=== PATIENT | male | born 1945 | race Caucasian/White ===

== ENCOUNTER 2016-03-15 09:40 | Observation (INO) | payer OTHER ==
[2016-03-15] MEDS ORDERED: diphenhydrAMINE 25 MG CAP PO ONE ×2 (09:54→10:12)
[2016-03-15] MEDS ORDERED: FAMOTIDINE 20 MG TAB PO ONE (09:54)
[2016-03-15] MEDS ORDERED: NS 1,000 ML IV ONE (09:54)
[2016-03-15] MEDS ORDERED: ASPIRIN EC 325 MG TAB PO ONE ×3 (09:54→12:59)
[2016-03-15] MEDS ORDERED: DIAZEPAM 5 MG TAB PO ONE (09:54)
--- NOTE | 2016-03-15 10:09 | CPEKG ---
Heart Rate: 65 RR Interval: 923 P-R Interval: 248 QRSD Interval: 148 QT Interval: 428 QTC Interval: 445 P [place]: 31 QRS [place]: -28 T Wave [place]: -2 EKG Severity - ABNORMAL ECG - EKG Impression: SINUS RHYTHM EKG Impression: ATRIAL PREMATURE COMPLEX EKG Impression: FIRST DEGREE AV BLOCK EKG Impression: RIGHT BUNDLE BRANCH BLOCK EKG Impression: PROBABLE INFERIOR INFARCT, AGE INDETERMINATE Electronically Signed By: Marcos Jo 15-Mar-2016 13:20:04
[2016-03-15] MEDS ORDERED: FAMOTIDINE 20 MG TAB ONE (10:12)
[2016-03-15] MEDS ORDERED: DIAZEPAM 5 MG TAB ONE (10:12)
[2016-03-15 10:31] LABS: % IMMATURE GRANULYOCYTES 0.3 % (0.0-1.1); ABSOLUTE IMMATURE GRANULOCYTES 0.02 10^3/uL (0.00-0.10); ADD DIFF? NO; ADD MORPH? NO; ADD SCAN? NO; ATYPICAL LYMPHOCYTE FLAG 10 (0-99); FRAGMENT RBC FLAG 0 (0-99); HEMATOCRIT 39.7 % (40.0-51.0); HEMOGLOBIN 13.8 g/dL (13.7-17.5); LEFT SHIFT FLG 0 (0-99); LIPEMIA HEMOLYSIS FLAG 90 (0-99); MEAN CELL HEMOGLOBIN CONCENTR. 34.8 g/dL (32.4-36.7); MEAN CELL VOLUME 92.1 fL (81.5-99.8); MEAN PLATELET VOLUME 11.8 fL (8.7-11.7); PLATELET CLUMPS FLAG 0 (0-99); PLATELET COUNT 221 10^3/uL (150-400); RED BLOOD CELL COUNT 4.31 10^6/uL (4.40-6.38); RED CELL DISTRIBUTION WIDTH 13.6 % (11.5-15.2)
[2016-03-15] MEDS ORDERED: LIDOCAINE 1% 30 ML SDV ONE (10:31)
[2016-03-15] MEDS ORDERED: fentaNYL 100 MCG/2 ML INJ ONE ×2 (10:31→11:44)
[2016-03-15] MEDS ORDERED: MIDAZOLAM 2 MG/2 ML VIAL ONE ×3 (10:32→11:44)
[2016-03-15] MEDS ORDERED: HEPARIN 10,000 UNIT/10 ML MDV ONE ×2 (10:33→11:28)
[2016-03-15] MEDS ORDERED: VERAPAMIL 5 MG/2 ML VIAL ONE (10:33)
[2016-03-15] MEDS ORDERED: IOPAMIDOL (ISOVUE 370) 100 ML BTL IV ONE ×4 (10:34→12:26)
[2016-03-15 10:41] LABS: INR 1.09 (0.83-1.16)
[2016-03-15 10:55] LABS: ANION GAP 14 mEq/L (8-16); CALCIUM 9.6 mg/dL (8.5-10.4); CARBON DIOXIDE 21 mEq/l (22-31); CHLORIDE 107 mEq/L (97-110); CHOLESTEROL 180 mg/dL (140-220); CHOLESTEROL/HDL RATIO 5.29 RATIO (1.00-4.97); CREATININE 1.1 mg/dL (0.7-1.3); GLOMERULAR FILTRATION RATE > 60; GLUCOSE 134 mg/dL (70-100); HIGH DENSITY LIPOPROTEIN 34 mg/dL (40-65); LDL/HDL RATIO 3.21 RATIO (1.00-3.64); LOW DENSITY LIPOPROTEIN 109 mg/dL (80-100); MAGNESIUM 1.9 mg/dL (1.6-2.3); NON-HIGH DENSITY LIPOPROTEIN 146 mg/dL (90-129); POTASSIUM 4.4 mEq/L (3.5-5.2); SODIUM 142 mEq/L (134-144); TRIGLYCERIDE 185 mg/dL (40-150); VERY LOW DENSITY LIPOPROTEINS 37 mg/dL (8-25)
[2016-03-15] MEDS ORDERED: TICAGRELOR 90 MG TAB PO ONE ×2 (11:39→12:59)
[2016-03-15] MEDS ORDERED: NITROGLYCERIN 1,500 MCG/15 ML VIAL MISC ONE (11:39)
[2016-03-15] MEDS ORDERED: TEMAZEPAM 15 MG CAP PO PRN (12:59)
[2016-03-15] MEDS ORDERED: OXYCODONE/APAP 5/325 TAB PO PRN (12:59)
[2016-03-15] MEDS ORDERED: NITROGLYCERIN 0.4 MG BTL SL PRN (12:59)
[2016-03-15] MEDS ORDERED: ATROPINE SULFATE 1 MG/10 ML SYR IVP PRN (12:59)
[2016-03-15] MEDS ORDERED: ONDANSETRON 4 MG/2 ML VIAL IVP PRN (12:59)
[2016-03-15] MEDS ORDERED: LORazepam 2 MG/ML INJ IVP PRN (12:59)
[2016-03-15] MEDS ORDERED: HYDROCODONE/APAP 5/325 TAB PO PRN (12:59)
[2016-03-15] MEDS ORDERED: NS 1,000 ML IV SCH (13:00)
--- NOTE | 2016-03-15 13:06 | PDDXCAT ---
Diagnostic Cath Note - . Date: 03/15/16 Division Controller: Lee Indication: Class I/II angina, intolerance to med therapy or failure to respond , High-risk criteria on noninvasive testing (choose option below) High-risk criteria on non-invasive testing: high-risk treadmill score (score<=- 11) - Procedure Access: right groin Procedure: left heart catheterization, coronary angiography, left ventriculogram , vein graft injection, PEREZ injection - Materials Left Heart Cath size: 6F Left Heart Cath materials: JL4.0, JR4.0, pigtail, other ( intravascular ultrasound with PCI of the saphenous vein graft to the right coronary and PCI of the left main coronary artery) - Findings-Left Heart Catheterization LM: 95% unobstructed with a large calcific atheroma LAD: 100% occluded after septal multilith operator LCX: 100% occluded RCA: 100% occluded proximally rSVG: patent to the principal diagonal, patent to the obtuse marginal branch, 99 % stenosis of the vein graft to the posterior lateral and posterior descending coronary artery PEREZ: patent to the LAD EDP: 15 mm of mercury with significant respiratory variation LVEF: 60% Wall motion: normal Complications: none Estimated blood loss: <50ml Closure method: Angioseal Assessment: 1. Severe [place] three-vessel coronary artery disease with complete occlusion of the [place] circ, lad, proximal right coronary artery. 2. Patent mammary artery to the LAD. 3. Patent vein graft to the diagonal and obtuse marginal branch. 4. crescendo angina with subtotal stenosis of the vein graft to the posterior lateral and posterior descending coronary artery. 5. Significant left main disease supplying proximal diagonal and septal perforators. 6. Normal left ventricular systolic function Plan: PCI and stenting of the vein graft to the right coronary artery. PCI and stenting of the proximal left main. Intervention: After reviewing diagnostic angiograms it was elected to proceed with PCI of the vein graft to the right coronary artery. Patient was administered IV heparin. He was loaded with Brilinta. Using a 6 Pryde[place] JR4 guiding catheter the right coronary artery graft was selectively intubated. Attempts at crossing with a large filter wire were made but the basket would not cross the stenosis. Even with a yared wire we were unable to advance the filter wire. Pre dilatation was performed using a 0.014 grand slam wire and a 1.5 mm balloon. Attempts at crossing with a 4.0 x 15 mm synergy stent were made but failed. A 2nd pre dilatation was performed using a 2 mm balloon. The stent easily crossed was placed across the stenosis and deployed using a single inflation. Intravascular ultrasound was slow pullback showed the stent to be completely opposed. The wire was withdrawn and our attention was then turned to the left main coronary artery. Therapeutic ACT was confirmed. Additional heparin was given. Attempts at engaging the left main coronary artery using a JL4 guiding catheter were made but failed. A 6 Prydeinig EBU 3.75 guide was then used to intubate the left main coronary. A wire was advanced into the distal LAD and down the septal multilith operator. Intravascular ultrasound confirmed a large atheroma of the proximal left main with subtotal stenosis. Pre dilatation was performed using a 4 mm balloon. A 4.0 x 16 mm synergy stent was positioned in orthogonal views and deployed using a single inflation. Repeat intravascular ultrasound showed a distal limited dissection with disruption of the intima. A 2nd 4.0 x 8 mm synergy was stent was placed distally. Final angiogram revealed IRA grade 3 flow. Therapeutic ACT was confirmed at 2:54 a.m.. Left ventricular angiography was performed. Sheath was removed in the patient's taken to [facility] for continued care. Result discussed with the patient's . Final diagnosis: Crescendo angina with abnormal stress test status post PCI and stenting of the saphenous vein graft to the posterior descending and posterolateral branch and stenting of the [place] left main. Patient be continued on dual antiplatelet therapy for 1 year. Continued aggressive secondary prevention. Considerations for PCSK9 9 inhibitor with progression despite full dose Lipitor and gemfibrozil. Patient Problems: Problems Problem Status Diagnosed Coronary artery disease Acute Coronary artery disease involving autologous artery coronary bypass graft Acute Coronary artery disease involving left main coronary artery Acute
--- NOTE | 2016-03-15 13:12 | CPEKG ---
Heart Rate: 66 RR Interval: 909 P-R Interval: 228 QRSD Interval: 144 QT Interval: 444 QTC Interval: 466 P [place]: 33 QRS [place]: -40 T Wave [place]: 0 EKG Severity - ABNORMAL ECG - EKG Impression: SINUS RHYTHM EKG Impression: ATRIAL PREMATURE COMPLEX EKG Impression: FIRST DEGREE AV BLOCK EKG Impression: RIGHT BUNDLE BRANCH BLOCK EKG Impression: PROBABLE INFERIOR INFARCT, AGE INDETERMINATE Electronically Signed By: Marcos Jo 15-Mar-2016 13:19:45
[2016-03-15] MEDS: GEMFIBROZIL 600 MG TAB PO SCH (20:31)
[2016-03-15] MEDS: FAMOTIDINE 20 MG TAB PO SCH (20:31)
[2016-03-16 04:48] LABS: % IMMATURE GRANULYOCYTES 0.2 % (0.0-1.1); ABSOLUTE IMMATURE GRANULOCYTES 0.02 10^3/uL (0.00-0.10); ADD DIFF? NO; ADD MORPH? NO; ADD SCAN? NO; ATYPICAL LYMPHOCYTE FLAG 10 (0-99); FRAGMENT RBC FLAG 0 (0-99); HEMATOCRIT 36.3 % (40.0-51.0); HEMOGLOBIN 12.4 g/dL (13.7-17.5); LEFT SHIFT FLG 0 (0-99); LIPEMIA HEMOLYSIS FLAG 90 (0-99); MEAN CELL HEMOGLOBIN 31.9 pg (27.9-34.1); MEAN CELL HEMOGLOBIN CONCENTR. 34.2 g/dL (32.4-36.7); MEAN CELL VOLUME 93.3 fL (81.5-99.8); MEAN PLATELET VOLUME 12.1 fL (8.7-11.7); PLATELET CLUMPS FLAG 10 (0-99); PLATELET COUNT 201 10^3/uL (150-400); RED BLOOD CELL COUNT 3.89 10^6/uL (4.40-6.38); RED CELL DISTRIBUTION WIDTH 13.5 % (11.5-15.2)
[2016-03-16 05:03] LABS: ALBUMIN 3.8 g/dL (3.5-5.0); ANION GAP 13 mEq/L (8-16); ASPARTATE AMINOTRANSFERASE 45 IU/L (17-59); BILIRUBIN,TOTAL 0.5 mg/dL (0.1-1.4); CARBON DIOXIDE 22 mEq/l (22-31); CHLORIDE 107 mEq/L (97-110); GLOMERULAR FILTRATION RATE > 60; GLUCOSE 98 mg/dL (70-100); LACTATE DEHYDROGENASE 354 IU/L (313-618); MAGNESIUM 1.9 mg/dL (1.6-2.3); POTASSIUM 4.2 mEq/L (3.5-5.2); SODIUM 142 mEq/L (134-144)
[2016-03-16 07:33] VITALS: TEMP 98.1
[2016-03-16] MEDS: GEMFIBROZIL 600 MG TAB PO SCH (08:28)
[2016-03-16] MEDS: FAMOTIDINE 20 MG TAB PO SCH (08:28)
[2016-03-16] MEDS ORDERED: LOSARTAN POTASSIUM 25 MG TAB PO SCH (09:00)
[2016-03-16] MEDS ORDERED: ASPIRIN EC 81 MG TAB PO SCH (09:00)
[2016-03-16] MEDS ORDERED: TICAGRELOR 90 MG TAB PO SCH (09:00)
[2016-03-16] MEDS ORDERED: OMEGA-3 FATTY ACIDS 1,000 MG CAP PO SCH (09:00)
[2016-03-16] MEDS ORDERED: ATORVASTATIN CALCIUM 40 MG TAB PO SCH (09:00)
--- NOTE | 2016-03-16 09:14 | CPEKG ---
Heart Rate: 75 RR Interval: 800 P-R Interval: 192 QRSD Interval: 152 QT Interval: 432 QTC Interval: 483 P [place]: 24 QRS [place]: -54 T Wave [place]: 6 EKG Severity - ABNORMAL ECG - EKG Impression: SINUS ARRHYTHMIA, RATE 67-82 EKG Impression: MULTIPLE VENTRICULAR PREMATURE COMPLEXES EKG Impression: RIGHT BUNDLE BRANCH BLOCK EKG Impression: INFERIOR INFARCT, AGE INDETERMINATE Electronically Signed By: Marcos Jo 16-Mar-2016 10:21:16
[2016-03-16 12:32] VITALS: BP 147/87; PULSE 86; RESP 16; O2SAT 94
[2016-03-16] MEDS ORDERED: GLIMEPIRIDE 2 MG TAB PO PRN (18:00)
--- NOTE | 2016-03-16 20:38 | GDS ---
[f rep st] DISCHARGE SUMMARY REASON FOR ADMISSION: Coronary artery disease. HOSPITAL COURSE: Please refer to Dr. Howard's recent office note which serves as the admission history and physical for this hospital encounter. Also , refer to his cardiac catheterization report. Briefly, the patient is a 70- year-old male with a history of CAD and a prior 4-vessel CABG performed in 2005. He recently developed worsening dyspnea on exertion and chest pressure with physical activities such as skiing. On that basis, he was scheduled for cardiac catheterization. That procedure was carried out yesterday and demonstrated preserved left ventricular function. All 3 of his [place] coronary arteries were totally occluded. A left internal mammary bypass to the left anterior descending was patent. Separate saphenous vein grafts to the principal diagonal branch and principal obtuse marginal branch were also patent. His saphenous vein graft to the distal RCA had a focal, greater than 90 % lesion in the midportion of the graft. Additionally, the patient had a high- grade stenosis of the left main which supplies the proximal portions and a few small branches of the left anterior descending and circumflex. Based on the patient's clinical history and diagnostic angiograms, Dr. Howard proceeded with percutaneous intervention of the saphenous vein graft to the distal RCA, placing a 4.0 x 16 mm Synergy stent. The left main also underwent PCI with placement of two Synergy stents measuring 4.0 x 16 mm and 4.0 x 8 mm. Angiographic outcome at both sites was excellent. Overnight, the patient has had no cardiac symptoms and has not had any issues with his femoral catheterization site. RECOMMENDATIONS AND DISPOSITION: The patient is discharged in stable condition. Please refer to the medication reconciliation section of the electronic record. He should not resume his metformin for another 48 hours. For now, his dual anti-platelet therapy will consist of Brilinta and aspirin. He should reduce his home aspirin dose from 325 mg daily to 81 mg daily while he is on Brilinta. He was provided with a card for a free 30-day supply. Genetic testing to determine his clopidogrel metabolism has been requested. His LDL cholesterol was measured at 109. He will discuss potentially starting a PCSK9 inhibitor with Dr. Howard in the office. The office staff at [facility] has been instructed to contact the patient to arrange a followup appointment in the near future. He should resume his usual heart healthy dietary and exercise habits. DISCHARGE DIAGNOSES: 1. Coronary artery disease. 2. History of bypass surgery. 3. Status post percutaneous coronary intervention of the saphenous vein graft to the right coronary artery with placement of a single drug-coated stent. 4. Status post percutaneous coronary intervention of the left main with placement of two drug-coated stents. /[id number]/MODL MTDD
[2016-03-17] MEDS ORDERED: GLIMEPIRIDE 2 MG TAB PO SCH (09:00)
[2016-03-19 15:39] LABS: 2C19S INTERPRETATION See Comments (())
== END 2016-03-16 14:53 | disposition home or self-care (01) ==
LOC: FCATH 09:40 → F2W 12:54
PROVIDERS: ADMIT Internal Medicine Interventional Cardiology; ATTEND Internal Medicine Interventional Cardiology
PROC: 027136Z Dilation of Coronary Artery, Two Arteries with Three Drug-eluting Intraluminal Devices, Percutaneous Approach (ICD-10-PCS; principal; 2016-03-15)
PROC: B2151ZZ Fluoroscopy of Left Heart using Low Osmolar Contrast (ICD-10-PCS; principal; 2016-03-15)
PROC: B2111ZZ Fluoroscopy of Multiple Coronary Arteries using Low Osmolar Contrast (ICD-10-PCS; principal; 2016-03-15)
PROC: 4A023N7 Measurement of Cardiac Sampling and Pressure, Left Heart, Percutaneous Approach (ICD-10-PCS; principal; 2016-03-15)
DX: I25.110 Atherosclerotic heart disease of native coronary artery with unstable angina pectoris (principal); I25.710 Atherosclerosis of autologous vein coronary artery bypass graft(s) with unstable angina pectoris; Z95.1 Presence of aortocoronary bypass graft
CPT/HCPCS: 92978; 92979; 93005; 93459; C1725; C1753; C1760; C1769; C1874; C1884; C1887; C9600; C9604; G0378; J1644; J2250; J3010; Q9967; 81225-90

== ENCOUNTER → 2017-04-13 | Outpatient (CLI) | payer OTHER | LOC: FIMAGING 10:12 | PROVIDERS: ATTEND Family Medicine | DX: M51.26 Other intervertebral disc displacement, lumbar region (principal) ==

== ENCOUNTER → 2017-04-18 | Outpatient (CLI) | payer OTHER | LOC: FIMAGING 14:15 | PROVIDERS: ATTEND Physical Medicine & Rehabilitation Neuromuscular Medicine | DX: M43.16 Spondylolisthesis, lumbar region (principal); M51.36 Other intervertebral disc degeneration, lumbar region ==

== ENCOUNTER → 2017-05-08 | Outpatient (CLI) | payer OTHER | LOC: FIMAGING 11:36 | PROVIDERS: ATTEND Physician Assistant Surgical | DX: Z01.818 Encounter for other preprocedural examination (principal); M54.9 Dorsalgia, unspecified ==

== ENCOUNTER → 2017-05-16 | Outpatient (CLI) | payer OTHER ==
--- NOTE | 2017-05-16 14:01 | CPEKG ---
Heart Rate: 83 RR Interval: 723 P-R Interval: 212 QRSD Interval: 146 QT Interval: 408 QTC Interval: 480 P [place]: 22 QRS [place]: -32 T Wave [place]: 15 EKG Severity - ABNORMAL ECG - EKG Impression: SINUS RHYTHM EKG Impression: RIGHT BUNDLE BRANCH BLOCK EKG Impression: INFERIOR INFARCT, AGE INDETERMINATE Electronically Signed By: Baljinder Henson 17-May-2017 12:27:32
== END ==
LOC: FCP 13:08
PROVIDERS: ATTEND Neurological Surgery
DX: Z01.812 Encounter for preprocedural laboratory examination (principal)